=== PATIENT | female | born 1975 | race Caucasian/White ===

== ENCOUNTER → 2019-09-27 07:44 | Outpatient (BNVA) | payer MEDICAID, SELFPAY | PROVIDERS: Visit Provider Nurse Practitioner Psychiatric/Mental Health | DX: F31.73 Bipolar disorder, in partial remission, most recent episode manic (principal); F43.12 Post-traumatic stress disorder, chronic; F41.1 Generalized anxiety disorder; F17.210 Nicotine dependence, cigarettes, uncomplicated | CPT/HCPCS: 99213 ==

== ENCOUNTER 2019-12-06 15:25 | Outpatient (CLI) | payer OTHER, SELFPAY ==
--- NOTE | 2019-12-06 15:37 | MM_ITS ---
WS: [id number] BILATERAL DIGITAL SCREENING MAMMOGRAPHY WITH CAD CLINICAL INFORMATION: SCREENING HISTORY: Screening mammogram. No current complaints. COMPARISON: April 26, 2018 TECHNIQUE: Bilateral CC and MLO views. FINDINGS: The breasts are composed of heterogeneous fibroglandular density tissue, which can limit the detectio n of small underlying mass lesions. No suspicious mass, asymmetry, calcifications, or architectural d istortion. No evidence of malignancy. MM/[place] [id number] IMPRESSION: BI-RADS: 1-Negative FOLLOW UP: 1 Year Follow-up Recommend return to annual screening mammography.
== END 2019-12-06 15:26 | disposition home or self-care (01) ==
LOC: RADSHAW 15:34
PROVIDERS: Visit Provider Nurse Practitioner Family
DX: Z12.31 Encounter for screening mammogram for malignant neoplasm of breast (principal)
CPT/HCPCS: 77067

== ENCOUNTER → 2020-10-02 08:56 | Outpatient (BNVA) | payer MEDICAID, SELFPAY | PROVIDERS: Visit Provider Nurse Practitioner Psychiatric/Mental Health | DX: F31.73 Bipolar disorder, in partial remission, most recent episode manic (principal); F43.12 Post-traumatic stress disorder, chronic; F41.1 Generalized anxiety disorder; F17.210 Nicotine dependence, cigarettes, uncomplicated; F10.21 Alcohol dependence, in remission | CPT/HCPCS: 99214 ==

== ENCOUNTER → 2021-01-23 07:17 | Outpatient (BNVA) | payer MEDICAID, SELFPAY | PROVIDERS: Visit Provider Nurse Practitioner Psychiatric/Mental Health | DX: F31.73 Bipolar disorder, in partial remission, most recent episode manic (principal); F43.12 Post-traumatic stress disorder, chronic; F41.1 Generalized anxiety disorder; F17.210 Nicotine dependence, cigarettes, uncomplicated; F10.21 Alcohol dependence, in remission | CPT/HCPCS: 99214 ==

== ENCOUNTER → 2021-03-06 08:26 | Outpatient (BNVA) | payer MEDICAID, SELFPAY | PROVIDERS: Visit Provider Nurse Practitioner Psychiatric/Mental Health | DX: F31.73 Bipolar disorder, in partial remission, most recent episode manic (principal); F43.12 Post-traumatic stress disorder, chronic; F41.1 Generalized anxiety disorder; F17.210 Nicotine dependence, cigarettes, uncomplicated; F10.21 Alcohol dependence, in remission | CPT/HCPCS: 99214 ==

== ENCOUNTER → 2021-04-17 07:57 | Outpatient (BNVA) | payer MEDICAID, SELFPAY | PROVIDERS: Visit Provider Nurse Practitioner Psychiatric/Mental Health | DX: F31.73 Bipolar disorder, in partial remission, most recent episode manic (principal); F43.12 Post-traumatic stress disorder, chronic; F41.1 Generalized anxiety disorder; F17.210 Nicotine dependence, cigarettes, uncomplicated; F10.21 Alcohol dependence, in remission | CPT/HCPCS: 99214 ==

== ENCOUNTER 2021-05-01 15:51 | Outpatient (CLI) | payer MEDICAID, SELFPAY ==
--- NOTE | 2021-05-01 16:10 | MR_ITS ---
WS: [id number] MRI CERVICAL SPINE NONCONTRAST TECHNIQUE: Sagittal T1, T2 and STIR imaging. Axial T2, gradient, and fiesta imaging. CLINICAL INFORMATION: CERVICALGIA M54.2 COMPARISON: None. FINDINGS: Straightening of the normal cervical lordosis. Disc bulging with small central protrusions worse at C 5-C6 and C6-C7. C2-C3: Disc osteophyte complex with endplate ridging. Spinal canal and foramen are patent. Mild facet arthropathy. C3-C4: Disc osteophyte complex with endplate ridging. Mild facet arthropathy. Spinal canal and forame n are patent. C4-C5: Mild disc bulging and osteophytic ridging. Mild facet arthropathy. Spinal canal and foramen ar e patent. C5-C6: Disc osteophyte complex with endplate ridging. Right pericentral protrusion extending into the right proximal neural foramen. Mild central canal stenosis and slight indentation right ventral cerv ical cord. Severe right proximal foraminal stenosis. Mild left bony foraminal narrowing. Moderate to advanced left facet arthropathy with a small amount of periarticular edema. C6-C7: Disc osteophyte complex with endplate ridging. Indentation on cervical cord with moderate cent ral canal stenosis. Cord signal remains normal. Moderate bilateral bony foraminal narrowing right gre ater than left. Mild facet arthropathy. C7-T1: Mild disc osteophytic ridging. Spinal canal and foramen are patent. Visualized brain stem structures: Normal. Prevertebral soft tissues: Normal. Small right thyroid nodule measuring 6 mm. MR/MR cervical spin wo con* [id number] IMPRESSION: 1. Straightening of the normal cervical lordosis. Cord signal is normal. 2. Mild central canal stenosis C5-C6 and moderate central canal stenosis C6-7 with indentation on cervical cord worse at C6-C7. 3. Right pericentral protrusion C5-C6 extending into the proximal right neural foramen with severe right foraminal narrowing. Correlation for right C6 nerve root symptoms. 4. Moderate bilateral bony foraminal narrowing C6-7, right greater than left. 5. Small amount of periarticular edema left C5-6 articulating facets consisten t with synovitis/degenerative change. Advanced left facet arthropathy C5-C6.
== END 2021-05-01 15:52 | disposition home or self-care (01) ==
LOC: RADSHAW 15:55
PROVIDERS: PCP Physician Assistant; Visit Provider Physician Assistant
DX: M48.02 Spinal stenosis, cervical region (principal); M50.222 Other cervical disc displacement at C5-C6 level; R60.0 Localized edema
CPT/HCPCS: 72141

== ENCOUNTER 2021-05-14 16:42 | Outpatient (CLI) | payer MEDICAID, SELFPAY ==
--- NOTE | 2021-05-14 16:48 | MR_ITS ---
WS: [id number] MRI LUMBAR SPINE NONCONTRAST HISTORY: LUMBAR RADICULOPATHY COMPARISON: Radiographs 03/20/2021 TECHNIQUE: Sagittal and axial multisequence imaging is submitted. Very mild RIGHT curvature lumbar spine. Posterior alignment demonstrates mild straightening. No fractures or marrow edema. Mild disc desiccation at L4-5 without loss of height. Conus terminates normally at L1-2 disc level. L1-L2: Normal. L2-L3: Very mild annular disc bulging with mild ligamentum flavum and facet hypertrophy. Small amount of fluid in the LEFT facet joint. Thecal sac is small caliber without significant stenosis. There is very mild encroachment upon the ventral thecal sac. L3-L4: Mild annular disc bulging with mild to moderate ligamentum flavum hypertrophy and facet arthri tis, LEFT greater than RIGHT. There is disc encroachment upon the ventral thecal sac causing mild fla ttening of the ventral thecal sac and encroachment into the lateral recesses. Mild central and bilate ral subarticular recess and foraminal stenosis. There is slight contact on the traversing L4 nerve ro ots. L4-L5: Diffuse annular disc bulging with a central disc protrusion moderate ligamentum flavum and fac et joint hypertrophy. Disc and facet disease causing a moderate central and RIGHT foraminal stenosis. Bilateral moderate subarticular recess stenosis and mild LEFT foraminal stenosis. There is mild disp lacement and encroachment with narrowing on the traversing L5 nerve roots and mild disc contact on th e exiting RIGHT L4 nerve root. L5-S1: Broad-based central disc protrusion without contact on the S1 nerve roots. Mild facet hypertro phy. No significant stenosis. MR/MR lumbar spine wo con* [id number] IMPRESSION: 1. 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 2. Central disc protrusion with ligamentum flavum and facet joint arthritis at L4-5 and the congenitally small thecal sac are resulting in moderate central, bilateral subarticular recess and RIGHT foraminal stenosis. Mild LEFT foraminal stenosis. Most significant encroachment upon the traversing L5 nerve roots. 3. Mild central, bilateral subarticular and foraminal stenosis at L3-4. Very s light contact on the traversing L4 nerve roots.
== END 2021-05-14 16:43 | disposition home or self-care (01) ==
LOC: RADSHAW 16:47
PROVIDERS: PCP Physician Assistant; Visit Provider Physician Assistant
DX: M54.16 Radiculopathy, lumbar region (principal); M51.26 Other intervertebral disc displacement, lumbar region; M48.061 Spinal stenosis, lumbar region without neurogenic claudication
CPT/HCPCS: 72148

== ENCOUNTER → 2021-05-22 08:50 | Outpatient (BNVA) | payer MEDICAID, SELFPAY | PROVIDERS: Visit Provider Nurse Practitioner Psychiatric/Mental Health | DX: F31.73 Bipolar disorder, in partial remission, most recent episode manic (principal); F43.12 Post-traumatic stress disorder, chronic; F41.1 Generalized anxiety disorder; F17.210 Nicotine dependence, cigarettes, uncomplicated; F10.21 Alcohol dependence, in remission | CPT/HCPCS: 99214 ==

== ENCOUNTER → 2021-08-26 07:50 | Outpatient (BNVA) | payer MEDICAID, SELFPAY | PROVIDERS: Visit Provider Nurse Practitioner Psychiatric/Mental Health | DX: F41.1 Generalized anxiety disorder (principal); F43.12 Post-traumatic stress disorder, chronic; F31.62 Bipolar disorder, current episode mixed, moderate; F17.210 Nicotine dependence, cigarettes, uncomplicated; F10.21 Alcohol dependence, in remission; Z79.899 Other long term (current) drug therapy | CPT/HCPCS: 99214 ==

== ENCOUNTER → 2021-09-24 07:20 | Outpatient (BNVA) | payer MEDICAID, SELFPAY | PROVIDERS: Visit Provider Nurse Practitioner Psychiatric/Mental Health | DX: F31.62 Bipolar disorder, current episode mixed, moderate (principal); F43.12 Post-traumatic stress disorder, chronic; F41.1 Generalized anxiety disorder; F17.210 Nicotine dependence, cigarettes, uncomplicated; F10.21 Alcohol dependence, in remission | CPT/HCPCS: 99214 ==

== ENCOUNTER 2021-09-25 12:10 | Emergency (ER) | payer MEDICAID, SELFPAY ==
[2021-09-25 12:37] VITALS: BP 136/92; PULSE 102; RESP 16; TEMP 36.7; O2SAT 99; BMI 26.5
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
[2021-09-25] MEDS: ketorolac 60 mg/2 mL INJ IM (13:06)
[2021-09-25] MEDS: orphenadrine 30 mg/mL Inj 2 mL 60 MG IM (13:06)
== END 2021-09-25 14:00 | disposition home or self-care (01) ==
PROVIDERS: Emergency Provider Physician Assistant; PCP Physician Assistant
DX: S13.4XXA Sprain of ligaments of cervical spine, initial encounter (principal); M54.50 Low back pain, unspecified; V43.02XA Car driver injured in collision with other type car in nontraffic accident, initial encounter; F17.200 Nicotine dependence, unspecified, uncomplicated
CPT/HCPCS: 72100; 72125; 96372; 99283; J1885; J2360

== ENCOUNTER 2021-12-19 07:34 | Outpatient (CLI) | payer MEDICAID, SELFPAY ==
--- NOTE | 2021-12-19 07:41 | MM_ITS ---
WS: [id number] SCREENING DIGITAL BREAST TOMOSYNTHESIS MAMMOGRAM WITH CAD HISTORY: SCREENING COMPARISON: 12/06/2019 and 04/26/2018 Bilateral CC and MLO with tomosynthesis and synthetic mammography submitted. Computer aided detection analyzed. Breast composition: There are scattered areas of fibroglandular density. New 6 mm asymmetry in the me dial LEFT breast on the CC projection. This should be within the medial breast on the lateral project ion. No corresponding abnormality noted. There is enhancement additional 5 mm asymmetry in the LEFT M LO in the posterior inferior breast which probably corresponds to a more central lymph node. RIGHT br east is negative. MM/[place] [id number] IMPRESSION: BI-RADS: 0-Incomplete: Need additional imaging evaluation FOLLOW UP: Need Additional Imaging LEFT breast: Spot compression views (CC ). True ML. Ultrasound to follow if abn ormality persists. Additional imaging of the asymmetry in the medial LEFT breas t.
== END 2021-12-19 07:35 | disposition home or self-care (01) ==
LOC: RAD 07:35
PROVIDERS: PCP Physician Assistant; Visit Provider Physician Assistant
DX: Z12.31 Encounter for screening mammogram for malignant neoplasm of breast (principal)
CPT/HCPCS: 77063; 77067

== ENCOUNTER 2022-01-08 07:36 | Outpatient (CLI) | payer MEDICAID, SELFPAY ==
--- NOTE | 2022-01-08 07:40 | MM_ITS ---
WS: [id number] ADDITIONAL VIEWS LEFT MAMMOGRAM with tomosynthesis. LEFT BREAST ULTRASOUND HISTORY: ABNORMAL MAMMO COMPARISON: 12/19/2021, 12/06/2019 and 04/26/2018 LEFT MAMMOGRAM: Spot compression views and true ML with tomosynthesis and sympathetic mammography. There are 2 adjacent nodules each measuring about 4 mm in the medial breast. These appear to be just above the nipple line on the lateral projection. These were not present on prior studies. Ultrasound to follow. LEFT BREAST ULTRASOUND 2-D and color Doppler imaging submitted. There is a lobulated cystic mass in the LEFT breast at 10:00, 5 cm from the nipple measuring 6 x 6 x 4 mm. This does correspond in size and position to the mammographic abnormality. This is probably 2 s mall cysts together or a single lobulated cyst. MM/[id number] IMPRESSION: BI-RADS: 2-Benign FOLLOW UP: 1 Year Follow-up
== END 2022-01-08 07:37 | disposition home or self-care (01) ==
PROVIDERS: PCP Physician Assistant; Visit Provider Physician Assistant
DX: R92.8 Other abnormal and inconclusive findings on diagnostic imaging of breast (principal); N63.22 Unspecified lump in the left breast, upper inner quadrant
CPT/HCPCS: 76642; 77061

== ENCOUNTER 2022-01-30 11:53 | Emergency (ER) | payer MEDICAID, SELFPAY ==
[2022-01-30 12:12] VITALS: BP 126/85; PULSE 89; RESP 18; TEMP 36.8; O2SAT 97; BMI 29.2
--- NOTE | 2022-01-30 12:22 | XR_ITS ---
WS: [id number] XR chest 1V portable [id number] REASON FOR EXAM: sob FINDINGS: The heart and the mediastinum are within normal limits. Calcified granulomatous disease is seen in both hemithoraces. Compared to the previous examination of 03/20/2021 there is a linear lung opacity in the left lung bas e which most likely platelike atelectasis. The chest is otherwise unchanged compared to the previous examination. No significant abnormality of the bony thorax. XR/XR chest 1V portable [id number] IMPRESSION: Small area of linear atelectasis in the left lung base. Otherwise, no acute abn ormality.
[2022-01-30] MEDS: predniSONE 20 mg Tablet 60 MG PO (12:48)
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
[2022-01-30 13:15] LABS: Basophils # 0.1 10^3/uL (0.0-0.1); Basophils % 0.6 %; Eosinophils # 0.3 10^3/uL (0.0-0.8); Eosinophils % 2.7 %; Hematocrit 44.5 % (37.0-47.0); Hemoglobin 14.8 g/dL (11.5-15.3); Lymphocytes # 2.6 10^3/uL (0.8-4.8); Lymphocytes % 25.5 %; Mean Corpuscular HGB Conc 33.3 g/dL (30.0-36.0); Mean Corpuscular Hemoglobin 32.6 pg (28.0-34.0); Mean Platelet Volume 10.3 fL (7.4-10.4); Monocytes # 0.9 10^3/uL (0.2-0.9); Monocytes % 8.8 %; Neutrophils % 62.1 %; Nucleated Red Blood Cells % 0 %; Platelet Count 337 10^3/cmm (130-400); Red Blood Count 4.54 10^6/uL (4.1-5.3); Red Cell Distribution Width 12.9 % (12.1-15.1); White Blood Count 10.3 10^3/uL (4.0-10.0)
[2022-01-30 13:41] LABS: Anion Gap 13.9 (5-19); Blood Urea Nitrogen 8 mg/dL (6-20); Calcium 9.4 mg/dL (8.5-10.5); Carbon Dioxide 26 mmol/L (22-29); Chloride 103 mmol/L (98-107); Glomerular Filtration Rate 106.3 mL/min (90-130); Glucose 80 mg/dL (65-115); Osmolality Calculated 285 mOsm/kg (285-295); Potassium 3.9 mmol/L (3.5-5.1); Sodium 139 mmol/L (136-145)
[2022-01-30 13:44] LABS: ABG PCO2 35.2 mmHg (35-45); ABG PH Result 7.45 (7.35-7.45); Arterial Blood Gas Hematocrit 42.2 % (37-47); Base Excess ABG 0.6 mmol/L (-2.0-2.0); Blood Gas Operator Identificat GD; Blood Gas Sample Site Brachial, right; Blood Gas Sample Type Arterial; Carboxyhemoglobin 2.8 %THgb (0.4-20.1); HCO3 ABG 24.3 mmol/L (22-26); HGB O2 Sat 94.7 % (95-100); Methemoglobin 0.6 % (0.4-1.5); Oxygen Device ROOM AIR; PO2 ABG 81.7 mmHg (80.0-100.0); Total Hemoglobin 13.8 g/dL (12-16)
[2022-01-30 14:14] VITALS: BP 147/92; PULSE 88; RESP 16; O2SAT 98
== END 2022-01-30 14:16 | disposition home or self-care (01) ==
PROVIDERS: Emergency Medicine; Emergency Provider Emergency Medicine; PCP Physician Assistant
DX: R06.02 Shortness of breath (principal); F17.210 Nicotine dependence, cigarettes, uncomplicated
CPT/HCPCS: 36600; 71045; 80048; 82805; 85025; 99285; J7512

== ENCOUNTER → 2022-07-22 09:30 | Outpatient (BNVA) | payer MEDICAID, SELFPAY | PROVIDERS: PCP Physician Assistant; Visit Provider Podiatrist Foot & Ankle Surgery | DX: B35.1 Tinea unguium (principal); L84 Corns and callosities | CPT/HCPCS: 11055; 73630; 99204 ==

== ENCOUNTER 2022-07-27 12:02 | Emergency (ER) | payer MEDICAID, SELFPAY ==
[2022-07-27] VITALS (12 sets, daily range): BP systolic 134–141; BP diastolic 94–99; PULSE 99–120; RESP 14–18; TEMP 36.6; O2SAT 96–99; BMI 28.3
--- NOTE | 2022-07-27 12:12 | ECG_ITS ---
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 Measurements Intervals [place] Rate: 119 P: 67 PA: 129 QRS: 74 QRSD: 85 T: 59 QT: 316 QTc: 445 Interpretive Statements SINUS TACHYCARDIA MINIMAL ST DEPRESSION [0.025+ mV ST DEPRESSION] ABNORMAL RHYTHM ECG No previous ECG available for comparison Electronically Signed On 07-27-2022 20:37:20 PARAFFIN MACHINE OPERATOR by Jacque Bullock M.D. [email or web address] [email or web address]/[id number]
--- NOTE | 2022-07-27 12:14 | XRR_ITS ---
PROCEDURE INFORMATION: Exam: XR Chest Exam date and time: 07/27/2022 1:01 PM Age: 47 years old Clinical indication: Pain; Angina pectoris; Additional info: Chest pain TECHNIQUE: Imaging protocol: Radiologic exam of the chest. Views: 1 view. COMPARISON: CR XR chest 1V portable [id number] 01/30/2022 12:43 PM FINDINGS: Lungs: Unremarkable. No consolidation. Pleural spaces: Unremarkable. No pleural effusion. No pneumothorax. Heart/Mediastinum: Unremarkable. No cardiomegaly. Bones/joints: Stable bony abnormality right 8th rib likely developmental or posttraumatic in nature. No acute findings detected. XR/XR chest 1V portable [id number] IMPRESSION: Negative chest
[2022-07-27] MEDS: aspirin 81 mg Chew Tablet 324 MG PO (12:48)
[2022-07-27 13:05] LABS: Basophils # 0.1 10^3/uL (0.0-0.1); Basophils % 0.4 %; Eosinophils # 0.2 10^3/uL (0.0-0.8); Eosinophils % 1.7 %; Hematocrit 44.1 % (37.0-47.0); Lymphocytes # 3.4 10^3/uL (0.8-4.8); Lymphocytes % 29.9 %; Mean Corpuscular Hemoglobin 33.6 pg (28.0-34.0); Mean Corpuscular Volume 98.9 fl (81-99); Mean Platelet Volume 10.5 fL (7.4-10.4); Monocytes # 0.7 10^3/uL (0.2-0.9); Monocytes % 6.2 %; Neutrophils # 7.06 10^3/uL (1.8-7.7); Neutrophils % 61.4 %; Nucleated Red Blood Cells % 0 %; Platelet Count 288 10^3/cmm (130-400); Red Blood Count 4.46 10^6/uL (4.1-5.3); Red Cell Distribution Width 13.2 % (12.1-15.1); White Blood Count 11.5 10^3/uL (4.0-10.0)
[2022-07-27 13:14] LABS: Troponin(5th) Baseline 6 ng/L (0-10)
[2022-07-27 13:16] LABS: Alanine Aminotransferase 44 U/L (0-33); Alkaline Phosphatase 146 U/L (35-105); Anion Gap 14.8 (5-19); Aspartate Amino Transferase 37 U/L (0-32); Blood Urea Nitrogen 8 mg/dL (6-20); Calcium 8.9 mg/dL (8.5-10.5); Carbon Dioxide 24 mmol/L (22-29); Chloride 100 mmol/L (98-107); Globulin 2.6 g/dL (1.3-4.6); Glomerular Filtration Rate 88.9 mL/min (90-130); Glucose 101 mg/dL (65-115); Osmolality Calculated 278 mOsm/kg (285-295); Potassium 3.8 mmol/L (3.5-5.1); Sodium 135 mmol/L (136-145); Total Bilirubin 0.2 mg/dL (0.15-1.2); Total Protein 6.6 g/dL (6.6-8.7)
--- NOTE | 2022-07-27 14:14 | PC.NURSE ---
patient placed on manager cardiac cath, BP and continuos pulse ox at this time.
[2022-07-27 14:37] LABS: Troponin 5 2HR Delta 0 ABS# (0-10)
--- NOTE | 2022-07-27 14:37 | ECG_ITS ---
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 Measurements Intervals [place] Rate: 98 P: 62 ND: 136 QRS: 63 QRSD: 80 T: 62 QT: 349 QTc: 447 Interpretive Statements SINUS RHYTHM Compared to ECG 07/27/2022 12:12:30 Sinus tachycardia no longer present ST (T wave) deviation no longer present Electronically Signed On 07-27-2022 22:07:20 STORAGE WHARFAGE CLERK by Jacque Bullock M.D. [email or web address] [email or web address]/store/[id number]
--- NOTE | 2022-07-27 16:08 | W.ED.CHESTPA ---
HPI - Chest Pain General: Chief Complaint: Chest Pain Stated Complaint: left side CP Time Seen by Provider: 07/27/22 12:13 Source: patient Mode of arrival: ambulatory History of Present Illness: 47-year-old female presents emergency room with complaints of chest pain and shortness of breath began this morning's been going on for several hours. Radiates into her left arm she describes it as being 8 of 10. It is resolved completely by the time I seen the patient. She gets short of breath with exertion. She has no known coronary artery disease she does smoke is a history of COPD. No nausea vomiting diarrhea no recent flulike symptoms productive cough or fever. MD complaint: chest pain Onset (ago): hour(s) Timing of current episode: episodic Onset: during rest Pain location: left chest Pain radiation: left arm Severity: moderate Quality: sharp Relieving factors: nothing Exacerbating factors: nothing Associated symptoms: Deny abdominal pain, diaphoresis, dyspnea, fever(s), leg edema, nausea, palpitations, sense of impending doom, syncope or vomiting Treatment prior to arrival: none Review of Systems Const: Denies: fever(s), chills, fatigue, malaise or diaphoresis ENMT: Denies: throat pain, ear or mastoid pain, nasal discharge or nasal congestion Card: Reports: chest pain; Denies: palpitations, irregular heart rhythm, edema or syncope Resp: Denies: dyspnea, productive cough, non-productive cough or wheezing GI: Denies: abdominal pain, nausea or vomiting : Denies: flank pain, difficulty voiding, dysuria, urinary frequency or urinary urgency Skin/Breast: Denies: rash or pruritus PFSH ED PFSH: Medical History Bipolar disorder, current episode mixed, moderate Chronic post-traumatic stress disorder Generalized anxiety disorder Nicotine dependence, cigarettes, uncomplicated No pertinent family history Psychiatric care Social History Smoking and tobacco status: current every day smoker Female Reproductive History: Date of last menstrual period: 01/19/22 Physical Exam Const: COMMON NORMALS: no acute distress GENERAL APPEARANCE: cooperative and comfortable ORIENTATION/CONSCIOUSNESS: Yes awake, Yes oriented to person, Yes oriented to place and Yes oriented to time HENMT: COMMON NORMALS: normocephalic, atraumatic and hearing grossly normal bilaterally HEAD & SCALP: normocephalic and atraumatic Chest: OTHER: Pain is reproducible to palpation on the left upper chest adjacent to the sternum Resp: COMMON NORMALS: normal respiratory effort, No retractions, No use of accessory muscles and clear to auscultation bilaterally AUSCULTATION: clear to auscultation bilaterally Cardio: COMMON NORMALS: regular rate, regular rhythm and No murmurs present (Cardio) RATE: regular rate RHYTHM: regular rhythm GI: COMMON NORMALS: Soft to palpation and No hepatosplenomegaly present AUSCULTATION: Yes normoactive bowel sounds PALPATION: Yes Soft to palpation, No Tenderness to palpation present (GI), No Guarding due to palpation present (GI) and Yes No hepatosplenomegaly present Extremity: COMMON NORMALS: normal to inspection, capillary refill normal, no clubbing, cyanosis or edema, no calf tenderness and no pedal edema Neuro: SENSORIUM/ORIENTATION: Yes oriented to person, Yes oriented to place and Yes oriented to time Skin: COMMON NORMALS: no rashes or lesions noted GENERAL SKIN EXAM: no rashes or lesions noted Course Vital Signs: Vital signs: Vital Signs Temperature 97.9 F 07/27/22 12:14 Pulse Rate 99 07/27/22 14:35 Respiratory Rate 16 07/27/22 14:35 Blood Pressure 141/99 07/27/22 14:50 Pulse Oximetry 98 07/27/22 14:35 Oxygen Delivery Me thod 07/27/22 12:14 MDM - Chest Pain Medical Decision Making Labs imaging and EKG reviewed no acute ST changes on EKG cardiac enzymes negative discharge patient home Lab Data 07/27/22 12:29 07/27/22 12:29 Radiology Impressions Chest X-Ray 07/27/22 12:14 IMPRESSION: Negative chest Laboratory Results WBC 11.5 10^3/uL (4.0-10.0) H 07/27/22 12:29 RBC 4.46 10^6/uL (4.1-5.3) 07/27/22 12:29 Hgb 15.0 g/dL (11.5-15.3) 07/27/22 12:29 Hct 44.1 % (37.0-47.0) 07/27/22 12:29 MCV 98.9 fl (81-99) 07/27/22 12: MCH 33.6 pg (28.0-34.0) 07/27/22 12: MCHC 34.0 g/dL (30.0-36.0) 07/27/22 12: RDW 13.2 % (12.1-15.1) 07/27/22 12: Plt Count 288 10^3/cmm (130-400) 07/27/22 12: MPV 10.5 fL (7.4-10.4) H 07/27/22 12:29 Neut % (Auto) 61.4 % 07/27/22 12: Lymph % (Auto) 29.9 % 07/27/22 12: [place] % (Auto) 6.2 % 07/27/22 12: Eos % (Auto) 1.7 % 07/27/22 12: Baso % (Auto) 0.4 % 07/27/22 12: Neut # (Auto) 7.06 10^3/uL (1.8-7.7) 07/27/22 12:29 Lymph # (Auto) 3.4 10^3/uL (0.8-4.8) 07/27/22 12: [place] # (Auto) 0.7 10^3/uL (0.2-0.9) 07/27/22 12:29 Eos # (Auto) 0.2 10^3/uL (0.0-0.8) 07/27/22 12: Baso # (Auto) 0.1 10^3/uL (0.0-0.1) 07/27/22 12:29 Nucleated RBC % (auto) 0 % 07/27/22 12: Nucleated RBCs # 0.0 /100WBC 07/27/22 12: Sodium 135 mmol/L (136-145) L 07/27/22 12:29 Potassium 3.8 mmol/L (3.5-5.1) 07/27/22 12: Chloride 100 mmol/L (98-107) 07/27/22 12: Carbon Dioxide 24 mmol/L (22-29) 07/27/22 12: Anion Gap 14.8 (5-19) 07/27/22 12:29 BUN 8 mg/dL (6-20) 07/27/22 12:29 Creatinine 0.7 mg/dL (0.5-0.9) 07/27/22 12:29 GFR Calculation 88.9 mL/min (90-130) L 07/27/22 12:29 Glucose 101 mg/dL (65-115) 07/27/22 12:29 Calculated Osmolality 278 mOsm/kg (285-295) L 07/27/22 12:29 Calcium 8.9 mg/dL (8.5-10.5) 07/27/22 12:29 Total Bilirubin 0.2 mg/dL (0.15-1.2) 07/27/22 12:29 AST 37 U/L (0-32) H 07/27/22 12:29 ALT 44 U/L (0-33) H 07/27/22 12:29 Alkaline Phosphatase 146 U/L (35-105) H 07/27/22 12:29 Troponin T Baseline 6 ng/L (0-10) 07/27/22 12:29 Troponin T 120 Minute 6.00 ng/L (0-10) 07/27/22 14:07 Delta Troponin T 0 ABS# (0-10) 07/27/22 14:07 Total Protein 6.6 g/dL (6.6-8.7) 07/27/22 12:29 Albumin 4.0 g/dL (3.5-5.2) 07/27/22 12:29 Globulin 2.6 g/dL (1.3-4.6) 07/27/22 12:29 Discharge Plan Discharge Patient Disposition: Home Clinical Impression: Atypical chest pain Condition: Stable Prescriptions: No Action budesonide-formoterol [Symbicort] 80-4.5 mcg/actuation HFA aerosol inhaler 2 puff inhalation BID omeprazole 20 mg capsule,delayed release(DR/EC) 20 mg PO DAILY hydroxyzine HCl 50 mg tablet 50 mg PO BID PRN (Reason: anxiety) Qty: 60 6RF albuterol sulfate 90 mcg/actuation HFA aerosol inhaler 2 puff inhalation Q6H PRN (Reason: Shortness Of Breath) metoprolol succinate 25 mg tablet extended release 24 hr 25 mg PO DAILY melatonin 10 mg tablet extended release 10 mg PO DIRECTED Qty: 30 1RF hydrocodone-acetaminophen 10-325 mg tablet 1 tab PO QID gabapentin 600 mg tablet 600 mg PO TID Qty: 270 2RF Abilify 20 mg tablet 20 mg PO QAM Abilify 5 mg tablet 5 mg PO QAM naproxen 375 mg tablet 375 mg PO DAILY PRN (Reason: Pain) terbinafine HCl 250 mg tablet 250 mg PO DAILY acetaminophen 325 mg Tablet 650 mg PO QID PRN (Reason: Pain) Discharge Orders: Discharge ED (Routine); Ordered 07/27/22 Ordered By: Raza Jiménez Referrals: Alexus Reese PA [Primary Care Provider] - Discharge Diet: Usual diet Discharge Activity: Resume usual activity Patient Instructions: Opioid Safety, Pain Management Activity Restrictions/Additional Instructions: You were seen for chest pain. Your EKG and cardiac enzymes were normal. manager audio will make arrangements for you to have an outpatient Lexiscan sestamibi stress test. Stand Alone Forms: Work/School Release Coding Level of Care Code ED Ribbon Weaver for Blade Yang
--- NOTE | 2022-07-28 14:12 | DCPLANNER ---
Addendum entered by Bettie Saravia 09/02/22 10:48: field operations farm manager received the following message from centralized scheduling: Good morning. I just received notification from Medicaid that they are not approving Stress test for patient. They said this order can be changed to CTA or withdrawn due to rapid results available for CTA and easily identifiable. Order is for Stress Test CPT [address] Jiménez. Please advise. Thanks, Ivy More field operations farm manager called patient and informed patient that patient would need to follow up her primary care physician. If the primary care physician feels that patient needs the stress test, then her pcp can order the stress test. Patient stated that she would schedule an appointment with Alexus Reese at [facility], her primary care. Original Note: field operations farm manager had message to schedule an outpatient stress test for patient. field operations farm manager faxed signed order to centralized scheduling, who will call patient with appointment information. field operations farm manager sent notification to patients primary care physician about the ER physician ordering the tests out of the ER.
== END 2022-07-27 14:56 | disposition home or self-care (01) ==
PROVIDERS: Emergency Provider Family Medicine; PCP Physician Assistant
DX: R07.89 Other chest pain (principal); F17.210 Nicotine dependence, cigarettes, uncomplicated
CPT/HCPCS: 36415; 71045; 80053; 84484; 85025; 93005; 99285

== ENCOUNTER → 2022-08-19 09:20 | Outpatient (BNVA) | payer MEDICAID, SELFPAY | PROVIDERS: PCP Physician Assistant; Visit Provider Podiatrist Foot & Ankle Surgery | DX: L84 Corns and callosities (principal); B35.1 Tinea unguium | CPT/HCPCS: 99213 ==

== ENCOUNTER → 2022-09-08 09:09 | Outpatient (BNVA) | payer OTHER, SELFPAY | PROVIDERS: PCP Physician Assistant; Visit Provider Nurse Practitioner Psychiatric/Mental Health | DX: F31.62 Bipolar disorder, current episode mixed, moderate (principal); Z79.899 Other long term (current) drug therapy | CPT/HCPCS: 80061; 83036 ==

== ENCOUNTER → 2022-09-30 09:51 | Outpatient (BNVA) | payer MEDICAID, SELFPAY ==
[2022-09-11 11:23] VITALS: BP 151/101; BMI 29.1
== END ==
PROVIDERS: PCP Physician Assistant; Visit Provider Podiatrist Foot & Ankle Surgery
DX: L84 Corns and callosities (principal); B35.1 Tinea unguium
CPT/HCPCS: 99213

== ENCOUNTER → 2022-10-30 08:49 | Outpatient (BNVA) | payer MEDICAID, SELFPAY ==
[2022-09-11 11:23] VITALS: BP 151/101; BMI 29.1
== END ==
PROVIDERS: PCP Physician Assistant; Visit Provider Podiatrist Foot & Ankle Surgery
DX: L84 Corns and callosities (principal); B35.1 Tinea unguium
CPT/HCPCS: 99213

== ENCOUNTER 2022-11-05 05:42 | Day surgery (SDC) | payer MEDICAID, SELFPAY ==
[2022-09-11 11:23] VITALS: BP 151/101; BMI 29.1
[2022-11-04 09:27] VITALS: BMI 28.3
[2022-11-05] VITALS (7 sets, daily range): BP systolic 107–165; BP diastolic 77–101; PULSE 85–92; RESP 16–18; TEMP 36.3–36.6; O2SAT 94–96
[2022-11-05] MEDS: acetaminophen 1,000 MG/100 ML PIGGYBACK 400 MG IV (06:21)
[2022-11-05] MEDS: sodium chloride 0.9% 1,000 ML 30 ML IV (06:23)
--- NOTE | 2022-11-05 06:36 | W.PM.OPSUD ---
Surgery/Procedure H&P Update DATE OF PROCEDURE: November 05, 2022 DATE H&P PERFORMED: 10/30/22 CHANGES TO PREVIOUS DOCUMENTATION: No changes PLANNED PROCEDURE: Operation Date: 11/05/22 07:00 Proposed Procedures p ?Right foot fifth digit derotational arthroplasty 86979,M20.41(Right) - Yassine Elias DPM
--- NOTE | 2022-11-05 06:38 | ANES.PREANE2 ---
Pre-Anesthetic Assessment Height/Weight: Height 1.6 m Weight 72.575 kg Temp Pulse Resp BP Pulse Ox O2 Del Method 97.8 F 92 18 165/101 96 Room Air 11/05/22 06:08 11/05/22 06:08 11/05/22 06:08 11/05/22 06:08 11/05/22 06:08 11/05/22 06:09 Operation Date: 11/05/22 07:00 Proposed Procedures p ?Right foot fifth digit derotational arthroplasty 70645,M20.41(Right) - Yassine Elias DPM Familial anesthetic complications: None Was Beta Sharyn taken within 24 hours: Yes Was Clonidine taken within 24 hours: N/A Last intake: Intake Last Liquid Date 11/04/22 Last Liquid Time 23:00 Last Solid Date 11/04/22 Last Solid Time 17:00 Social Alcohol (2-3 shots a night) and Tobacco Exam alert, oriented x 3, clear to auscultation bilaterally and regular rate & rhythm Airway Mallampati: Class II Dentition: false Pulmonary Asthma (mild) CV/HEM Hypertension atypical chest pain incident in july (normal enzymes and ekg) described as sharp pain. Patient states she's had no repeat episodes of chest pain and is able to achieve 4 METS without symptoms. 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 ER physician at visit had recommended follow up stress test, but this was not approved by insurance Hepatic hx Hep C GI Gastroesophageal Reflux Disease Anesthetic Plan ASA status: 3 Anesthesia: MAC Risk of > 500 ml blood loss (7ml/kg in children): No Medications/Allergies Home Medications Medication Instructions Recorded Confirmed Last Taken Type budesonide-formoterol HFA 80 2 puff inhalation BID 10/01/20 11/05/22 11/05/22 05:30 History mcg-4.5 mcg/actuation aerosol inhaler (Symbicort) omeprazole 20 mg capsule,delayed 20 mg PO DAILY 03/05/21 11/05/22 11/05/22 05:30 History release albuterol sulfate 90 mcg/actuation 2 puff inhalation Q6H PRN 03/23/22 11/04/22 Unknown History aerosol inhaler Shortness Of Breath melatonin 10 mg tablet,extended 10 mg PO DIRECTED #30 tabs 03/23/22 11/05/22 11/04/22 23:30 Rx release metoprolol succinate 25 mg 25 mg PO DAILY 03/23/22 11/05/22 11/05/22 05:30 History tablet,extended release 24 hr hydrocodone 10 mg-acetaminophen 1 tab PO QID pain 07/10/22 11/05/22 11/05/22 05:30 History 325 mg tablet acetaminophen 325 mg tablet 650 mg PO QID PRN Pain 07/27/22 11/04/22 11/04/22 History aripiprazole 20 mg tablet (Abilify) 20 mg PO QAM 07/27/22 11/04/22 11/04/22 History aripiprazole 5 mg tablet (Abilify) 5 mg PO QAM 07/27/22 11/04/22 11/04/22 History naproxen 375 mg tablet 375 mg PO DAILY PRN Pain 07/27/22 11/04/22 11/03/22 History gabapentin 600 mg tablet 600 mg PO TID #270 tabs 10/09/22 11/05/22 11/05/22 05:30 Rx hydroxyzine HCl 50 mg tablet 50 mg PO BID PRN anxiety #60 tabs 10/09/22 11/05/22 11/05/22 05:30 Rx cyclobenzaprine 10 mg tablet 10 mg PO QID PRN Spasms 11/05/22 11/05/22 Unknown History tramadol 50 mg tablet 50 mg PO Q6H PRN pain #16 tabs 11/05/22 Unknown Rx Allergies Allergy/AdvReac Type Severity Reaction Status Date / Time No Known Allergies Allergy Verified 11/05/22 06:15 Current Medications Generic Name Dose Route Start Last Admin Trade Name Freq PRN Reason Stop Dose Admin Sodium Chloride 1,000 mls @ 30 mls/hr 11/05/22 06:00 11/05/22 06:23 Sodium Chloride 0.9% IV 11/06/22 05:59 30 mls/hr .Q24H GRZEGORZ Administration PFSH Anesthesia Medical History Bipolar disorder, current episode mixed, moderate Chronic post-traumatic stress disorder Generalized anxiety disorder Nicotine dependence, cigarettes, uncomplicated No pertinent family history Psychiatric care Family History Mother CAD (coronary artery disease) Hypertension Back pain Father Cancer prostate Sister Cancer cervical Social History Smoking and tobacco status: current every day smoker cigarettes Years cigarettes smoked: 30 Quit status (tobacco): considering quitting Second hand smoke exposure: No Smoking risk assessment/counseling performed?: Yes Tobacco counseling given: support program Other tobacco screening/counseling details: discussed for 10 min. 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
[2022-11-05] MEDS: ceFAZolin 2,000 MG in sodium chloride 0.9% (plus) 50 ML 100 MG IV (07:01)
--- NOTE | 2022-11-05 07:29 | PC.NURSE ---
Pt arrived to PACU, awake, A&Ox3, pt denies any pain or nausea at this time. Dressing to right foot C/D/I, right toes p/w/d, cap refill <3 seconds, able to wiggle toes. FOB elevated.
[2022-11-05] MEDS: TRAMadol 50 mg Tablet PO (08:11)
--- NOTE | 2022-11-05 08:40 | P.OP_ITS ---
Operative Report Date of procedure: November 05, 2022 Pre-op diagnosis: Right foot fifth digit hammertoe Post-op diagnosis: Same Post-op findings: Right foot fifth digit hammertoe Procedure done: Right foot fifth digit derotational arthroplasty CPT 83931 Implants: None Surgeon: Jose Alfredo Mandel.P.MLillian Estimated blood loss: Less than 10 cc 11 min Complications: none Findings: see above Brief History: Patient is a 47-year-old female that has a history of right foot 5th digit hammertoe. The patient has had the aforementioned chief complaint for some time. Conservative treatment measures have been attempted and the patient has opted for surgical intervention at this time. A lengthy discussion regarding the procedure, including risks and complications has been had with the patient and is noted in the recent clinic note. Written and verbal consent have been obtained. All patient questions have been answered to the patient?s satisfaction. No written or verbal guarantees have been given or implied. The patient has been NPO since midnight. The history has been reviewed and the history and physical is current. The signed consent was confirmed and placed in the patient chart. Patient imaging has been reviewed and is consistent with the diagnosis. Under mild sedation, the patient was brought into the operating room and placed on the table in the supine position. IV antibiotics were given by the anesthesia team as preoperative surgical prophylaxis. IV sedation was then performed by the anesthesiateam. A pneumatic tourniquet was then placed about the right ankle. A local field block was then performed usinng 0.5% marcaine plain. The operative extremity was then prepped and draped in the usual fashion. The extremity was then elevated and exsanguinated before the tourniquet was inflated to 250mmHg. After inflation, the following procedure was then performed. Attention was directed to the fifth digit of the right foot. An elliptical incision was made over the proximal interphalangeal joint using a #15 blade. The ellipse was excised and passed from the operative field. Dissection was carried down through subcutaneous and superficial fascia to the extensor tendon. The extensor tendon was transected at the level of the proximal phalanx head. The extensor tendon was retracted proximally and the head and distal shaft of the proximal phalanx was exposed. A sagittal bone saw was used to remove the articular condyles and head of the proximal phalanx. This was passed from the operative field. The site was then irrigated with copious muscle sterile saline before attention was directed to closure. Extensor tendon was repaired using 4- 0 Vicryl followed by skin closed with 4-0 nylon in simple interrupted fashion. The tourniquet was let down and good hyperemic response was noted to all digits of the right foot. The incision was dressed with Xeroform, 4 x 4 gauze, Kerlix, Surinder before being placed in a postoperative shoe. The patient tolerated the procedure and anesthesia well and without complication. The patient was transported from the operating room to the recovery room with vital signs stable and vascular status intact to all digits of the right foot. The patient was given both written and verbal instructions to remain weight bearing as tolerated in post op shoe to the operative extremity, to keep dressings/splint clean, dry and intact and to take pain medication as directed. The patient will follow-up in the outpatient setting at their scheduled appointment. The patient was discharged with my personal number and was instructed to call if any questions or issues should arise. They were discharged home once anesthesia criteria was met.
--- NOTE | 2022-11-05 17:26 | ANE.PACU2 ---
Inpatient post-anesthesia follow up: Airway intact: Yes Vital signs: Temperature 97.4 F Pulse Rate 85 Respiratory Rate 18 Blood Pressure 141/80 Pulse Oximetry 94 Oxygen Delivery Me thod Room Air Oxygen Flow Rate Fraction of Inspir ed Oxygen Hydration adequate: Yes Nausea and vomiting: No Pain level: 1 Mental status: Baseline
== END 2022-11-05 08:18 | disposition home or self-care (01) ==
PROVIDERS: PCP Physician Assistant; Visit Provider Podiatrist Foot & Ankle Surgery
PROC: (CPT 28285; principal; 2022-11-05 07:00)
DX: M20.41 Other hammer toe(s) (acquired), right foot (principal); I10 Essential (primary) hypertension; K21.9 Gastro-esophageal reflux disease without esophagitis; Z79.891 Long term (current) use of opiate analgesic; F41.1 Generalized anxiety disorder; F17.210 Nicotine dependence, cigarettes, uncomplicated
CPT/HCPCS: 28285; J0131; J0690; J2250; J2704; J3010; J3490; J7030

== ENCOUNTER → 2022-11-19 12:54 | Outpatient (BNVA) | payer MEDICAID, SELFPAY ==
[2022-09-11 11:23] VITALS: BP 151/101; BMI 29.1
== END ==
PROVIDERS: PCP Physician Assistant; Visit Provider Podiatrist Foot & Ankle Surgery
DX: Z98.890 Other specified postprocedural states (principal)
CPT/HCPCS: 99024

== ENCOUNTER → 2022-12-01 12:59 | Outpatient (BNVA) | payer OTHER, SELFPAY ==
[2022-09-11 11:23] VITALS: BP 151/101; BMI 29.1
== END ==
PROVIDERS: PCP Physician Assistant; Visit Provider Podiatrist Foot & Ankle Surgery
DX: Z98.890 Other specified postprocedural states (principal)
CPT/HCPCS: 99024

== ENCOUNTER 2023-02-10 10:06 | Emergency (ER) | payer MEDICAID, SELFPAY ==
[2022-09-11 11:23] VITALS: BP 151/101; BMI 29.1
[2023-02-10 10:09] VITALS: BP 152/66; PULSE 106; TEMP 37.3; O2SAT 98; BMI 28.3
--- NOTE | 2023-02-10 10:38 | ED.C_ITS ---
HPI - Psych General: Chief Complaint: Psychiatric Symptoms Stated Complaint: SI Time Seen by Provider: 02/10/23 10:16 Source: patient Mode of arrival: ambulatory History of Present Illness: 48-year-old female presents emergency room via EMS. She had made suicidal expression while talking to the department of children services from [place] they were regarding her weight as she became upset she felt they were taking too much money and she would not be able to live and made a comment about killing herself. Department and children services from [place] called local police they went to her home made contact with her and were able to convince her to go with EMS to come to the hospital. She is now denying any suicidal ideation or plan she admits to having made a statement out of frustration but states she would never actually hurt herself. She is seen at [facility] and is on Abilify. She has not recently changed dose or missing doses she is not previously been admitted for suicidal ideation she does have a history of methamphetamine abuse but has been clean for a couple of years now per her report. complaint: suicidal ideation Review of Systems Const: Denies: fever(s), chills, body aches, change in appetite, fatigue or malaise ENMT: Denies: throat pain, ear or mastoid pain, nasal discharge or nasal congestion Card: Denies: chest pain, edema, dyspnea on exertion or orthopnea Resp: Denies: dyspnea, productive cough or non-productive cough GI: Denies: abdominal pain, nausea, vomiting, hematemesis, coffee ground emesis, diarrhea, constipation, bloating, hematochezia or melena : Denies: flank pain, difficulty voiding, dysuria, urinary frequency or urinary urgency Skin/Breast: Denies: rash or pruritus PFSH ED PFSH: Medical History Bipolar disorder, current episode mixed, moderate Chronic post-traumatic stress disorder Generalized anxiety disorder Nicotine dependence, cigarettes, uncomplicated No pertinent family history Psychiatric care Family History Mother CAD (coronary artery disease) Hypertension Back pain Father Cancer prostate Sister Cancer cervical Social History Smoking and tobacco status: current every day smoker cigarettes Years cigare ttes smoked: 30 Quit status (tobacco): considering quitting Second hand smoke exposure: No Smoking risk assessment/counseling performed?: Yes Tobacco counseling given: support program Other tobacco screening/counseling details: discussed for 10 min. 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 Current occupational exposures/hazards: Yes Pets and animals: Yes Pets & animals: cat(s) and dog(s) Leisure activites: other Leisure activities details: watch tv Sexually active: No Do you think of yourself as: Straight/Heterosexual Current gender identity: Female Batsheva/Sabianist: Jew Special batsheva needs: No Agree to transfusion: Yes Financial difficulty paying for basics: Somewhat Hard Female Reproductive History: Spontaneous abortions: No Physical Exam Const: GENERAL APPEARANCE: cooperative and comfortable ORIENTATION/CONSCIOUSNESS: Yes awake, Yes oriented to person, Yes oriented to place and Yes oriented to time HENMT: COMMON NORMALS: normocephalic, atraumatic and hearing grossly normal bilaterally HEAD & SCALP: normocephalic and atraumatic Resp: COMMON NORMALS: normal respiratory effort, No retractions, No use of accessory muscles and clear to auscultation bilaterally AUSCULTATION: clear to auscultation bilaterally Cardio: COMMON NORMALS: regular rate, regular rhythm and No murmurs present (Cardio) RATE: regular rate RHYTHM: regular rhythm GI: COMMON NORMALS: Soft to palpation and No hepatosplenomegaly present AUSCULTATION: Yes normoactive bowel sounds PALPATION: Yes Soft to palpation, No Tenderness to palpation present (GI), No Guarding due to palpation present (GI) and Yes No hepatosplenomegaly present Extremity: COMMON NORMALS: normal to inspection, capillary refill normal, no clubbing, cyanosis or edema, no calf tenderness and no pedal edema Neuro: SENSORIUM/ORIENTATION: Yes oriented to person, Yes oriented to place and Yes oriented to time Skin: COMMON NORMALS: no rashes or lesions noted GENERAL SKIN EXAM: no rashes or lesions noted Course Vital Signs: Vital signs: Vital Signs Temperature 99.1 F 02/10/23 10:09 Pulse Rate 106 H 02/10/23 10:09 Blood Pressure 152/66 02/10/23 10:09 Pulse Oximetry 98 02/10/23 10:09 Oxygen Delivery Me thod Room Air 02/10/23 10:09 MDM - Psych Medical Decision Making Discussed with psychiatry. Psychiatry seen the patient as well they do not feel that she is a high risk for self-harm. He thinks this is just an excited utterance. She is angry and frustrated with her circumstance that she reiterates repeatedly she was just angry and she does not intend to harm herself we will go and discharge her home follow-up with [facility] she has been established there in the past return if she has further problems. Medical Records I reviewed the patient's medical records. Lab Data I reviewed the patient's lab results. 02/10/23 10:34 02/10/23 10:34 Laboratory Results WBC 10.85 10^3/uL (3.29-11.43) 02/10/23 10:34 RBC 4.28 10^6/uL (3.85-5.65) 02/10/23 10:34 Hgb 14.80 g/dL (11.27-16.99) 02/10/23 10:34 Hct 43.6 % (36-47) 02/10/23 10:34 MCV 101.9 fl (85-98) H 02/10/23 10:34 MCH 34.6 pg (27-33) H 02/10/23 10:34 MCHC 33.9 g/dL (30-55) 02/10/23 10:34 RDW 12.4 % (12.1-15.1) 02/10/23 10:34 Plt Count 294 10^3/cmm (157-399) 02/10/23 10:34 MPV 10.6 fL (7.4-10.4) H 02/10/23 10:34 Neut % (Auto) 51.8 % 02/10/23 10:34 Lymph % (Auto) 36.6 % 02/10/23 10:34 Fajardo % (Auto) 7.2 % 02/10/23 10:34 Eos % (Auto) 3.1 % 02/10/23 10:34 Baso % (Auto) 0.7 % 02/10/23 10:34 Neut # (Auto) 5.62 10^3/uL (1.8-7.7) 02/10/23 10:34 Lymph # (Auto) 4.0 10^3/uL (0.8-4.8) 02/10/23 10:34 Fajardo # (Auto) 0.8 10^3/uL (0.2-0.9) 02/10/23 10:34 Eos # (Auto) 0.3 10^3/uL (0.0-0.8) 02/10/23 10:34 Baso # (Auto) 0.1 10^3/uL (0.0-0.1) 02/10/23 10:34 Nucleated RBC % (auto) 0 % 02/10/23 10:34 Nucleated RBCs # 0.0 /100WBC 02/10/23 10:34 Sodium 140 mmol/L (136-145) 02/10/23 10:34 Potassium 3.6 mmol/L (3.5-5.1) 02/10/23 10:34 Chloride 106 mmol/L (98-107) 02/10/23 10:34 Carbon Dioxide 21 mmol/L (22-29) L 02/10/23 10:34 Anion Gap 16.6 (5-19) 02/10/23 10:34 BUN 9 mg/dL (6-20) 02/10/23 10:34 Creatinine 0.6 mg/dL (0.5-0.9) 02/10/23 10:34 GFR Calculation 105.8 mL/min (90-130) 02/10/23 10:34 Glucose 99 mg/dL (65-115) 02/10/23 10:34 Calculated Osmolality 289 mOsm/kg (285-295) 02/10/23 10:34 Calcium 8.6 mg/dL (8.5-10.5) 02/10/23 10:34 Total Bilirubin 0.2 mg/dL (0.15-1.2) 02/10/23 10:34 AST 37 U/L (0-32) H 02/10/23 10:34 ALT 46 U/L (0-33) H 02/10/23 10:34 Alkaline Phosphatase 139 U/L (35-105) H 02/10/23 10:34 Total Protein 6.7 g/dL (6.6-8.7) 02/10/23 10:34 Albumin 3.9 g/dL (3.5-5.2) 02/10/23 10:34 Globulin 2.8 g/dL (1.3-4.6) 02/10/23 10:34 Salicylates < 0.3 mg/dL (3-10) L 02/10/23 10:34 Acetaminophen < 5.0 ug/mL (10-30) L 02/10/23 10:34 Discharge Plan Discharge Patient Disposition: Home Clinical Impression: Adjustment disorder with emotional disturbance Condition: Stable Prescriptions: No Action budesonide-formoterol [Symbicort] 80-4.5 mcg/actuation HFA aerosol inhaler 2 puff inhalation BID omeprazole 20 mg capsule,delayed release(DR/EC) 20 mg PO DAILY albuterol sulfate 90 mcg/actuation HFA aerosol inhaler 2 puff inhalation Q6H PRN (Reason: Shortness Of Breath) metoprolol succinate 25 mg tablet extended release 24 hr 25 mg PO DAILY gabapentin 600 mg tablet 600 mg PO TID Qty: 270 2RF hydroxyzine HCl 50 mg tablet 50 mg PO BID PRN (Reason: anxiety) Qty: 60 6RF hydrocodone-acetaminophen 10-325 mg tablet 1 - 2 tab PO Q4H PRN (Reason: Pain) Abilify 20 mg tablet 20 mg PO QAM Abilify 5 mg tablet 5 mg PO QAM melatonin 10 mg tablet extended release 10 mg PO QPM naproxen 375 mg tablet 375 mg PO DAILY PRN (Reason: Pain) acetaminophen 325 mg Tablet 650 mg PO QID PRN (Reason: Pain) cyclobenzaprine 10 mg tablet 10 mg PO QID PRN (Reason: Spasms) Discharge Orders: Discharge ED (Routine); Ordered 02/10/23 Ordered By: Raza Jiménez Referrals: Alexus Reese PA [Primary Care Provider] - Discharge Diet: Usual diet Discharge Activity: Resume usual activity Patient Instructions: Opioid Safety, Pain Management Activity Restrictions/Additional Instructions: You were seen by our psychiatrist on-call today he did not feel your immediate threat to harm or anyone else based on his statements she had made earlier in the day. He felt that you could be safely discharged. Keep your appointment with [facility] as previously scheduled. Coding Level of Care Code ED Metal Hanger for Blade Yang
[2023-02-10 10:50] LABS: Basophils # 0.1 10^3/uL (0.0-0.1); Basophils % 0.7 %; Eosinophils # 0.3 10^3/uL (0.0-0.8); Eosinophils % 3.1 %; Hematocrit 43.6 % (36-47); Lymphocytes % 36.6 %; Mean Corpuscular HGB Conc 33.9 g/dL (30-55); Mean Corpuscular Hemoglobin 34.6 pg (27-33); Mean Corpuscular Volume 101.9 fl (85-98); Mean Platelet Volume 10.6 fL (7.4-10.4); Monocytes # 0.8 10^3/uL (0.2-0.9); Monocytes % 7.2 %; Neutrophils # 5.62 10^3/uL (1.8-7.7); Neutrophils % 51.8 %; Nucleated Red Blood Cells % 0 %; Platelet Count 294 10^3/cmm (157-399); Red Blood Count 4.28 10^6/uL (3.85-5.65); Red Cell Distribution Width 12.4 % (12.1-15.1); White Blood Count 10.85 10^3/uL (3.29-11.43)
[2023-02-10 11:02] LABS: Alanine Aminotransferase 46 U/L (0-33); Albumin Level 3.9 g/dL (3.5-5.2); Alkaline Phosphatase 139 U/L (35-105); Anion Gap 16.6 (5-19); Aspartate Amino Transferase 37 U/L (0-32); Blood Urea Nitrogen 9 mg/dL (6-20); Calcium 8.6 mg/dL (8.5-10.5); Carbon Dioxide 21 mmol/L (22-29); Chloride 106 mmol/L (98-107); Creatinine Clr Calc Pharmacy 107.0823; Globulin 2.8 g/dL (1.3-4.6); Glomerular Filtration Rate 105.8 mL/min (90-130); Glucose 99 mg/dL (65-115); Osmolality Calculated 289 mOsm/kg (285-295); Potassium 3.6 mmol/L (3.5-5.1); Sodium 140 mmol/L (136-145); Total Bilirubin 0.2 mg/dL (0.15-1.2); Total Protein 6.7 g/dL (6.6-8.7)
[2023-02-10 11:15] LABS: Acetaminophen < 5.0 ug/mL (10-30); Salicylate < 0.3 mg/dL (3-10)
--- NOTE | 2023-02-10 12:07 | PC.NURSE ---
Pt is stating to nurse that she is being held against my will . I explained to pt that we are waiting for the psychiatrist to come evaluate her; if he states she is okay to go, then we can proceed from there but we cannot safely discharge her until he comes and sees her. Pt states, Okay so you guys are holding me against my will then and that is not legal. I explained to pt that I have spoke with Dr. Jiménez and let him know her concerns. Pt states she is going to leave, and I informed her, per Dr. Jiménez, that if she does attempt to leave prior to psychiatrist seeing her - that Dr. Jiménez will be forced to 96-hour hold her to keep her safe. Pt states, you guys can't get a court order to hold me here. I explained to her the 96 hour hold process. She continued to say that we are holding her against her will, and I will belgica all of you and this whole place . Nurse notified pt that Dr. Botello will be down to see her when he gets a break in seeing his other patients. She stated, Don't yell at me and have an attitude. Nurse stepped away and left patient with ROSELIA Trinidad and PSA. ROSELIA Trinidad got patient something to drink and a snack. Pt will be ordered a lunch tray.
== END 2023-02-10 13:51 | disposition home or self-care (01) ==
PROVIDERS: Emergency Provider Family Medicine; PCP Physician Assistant
DX: F43.29 Adjustment disorder with other symptoms (principal); F17.210 Nicotine dependence, cigarettes, uncomplicated
CPT/HCPCS: 36415; 80053; 80307; 85025; 99283

== ENCOUNTER 2023-07-30 07:33 | Emergency (ER) | payer OTHER, SELFPAY ==
[2022-09-11 11:23] VITALS: BP 151/101; BMI 29.1
[2023-07-30 07:57] VITALS: BP 132/83; PULSE 87; RESP 17; TEMP 36.7; O2SAT 97; BMI 28.3
--- NOTE | 2023-07-30 08:23 | ED_ITS ---
HPI - Back Pain/Injury General: Chief Complaint: Back Pain/Injury Stated Complaint: Lower Back pain Time Seen by Provider: 07/30/23 07:35 Source: patient Mode of arrival: ambulatory History of Present Illness: 48-year-old female presents to the [facility] with complaints of low back pain. 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 Has severe low back pain no difficulty with bowel or bladder no radiation of pain to lower extremities. MD elicited complaint: back pain Pertinent past history: prior back pain Onset (ago): hour(s) Timing: constant Severity: moderate Similar Symptoms Previously: Yes Quality: spasming Location: lumbar spine Radiation: none Exacerbating factors: none Relieving factors: none Context: while lifting Associated symptoms: Deny abdominal pain, arthralgias, chills, change in bowel habits, difficulty walking, dysuria, fatigue, fecal incontinence, fever(s), hematuria, myalgias, nausea, numbness, syncope, tingling/numbness/burning, urinary frequency, urinary urgency, vomiting or weakness Work related injury: Yes Review of Systems Const: Denies: fever(s), chills or fatigue Card: Denies: syncope Resp: Denies: dyspnea GI: Denies: abdominal pain, nausea, vomiting, fecal incontinence or change in bowel habits : Denies: dysuria, urinary urgency or hematuria Musc: Reports: back pain; Denies: neck pain Neuro: Denies: difficulty walking PFS ED PFSH: Medical History Bipolar disorder, current episode mixed, moderate Chronic post-traumatic stress disorder Generalized anxiety disorder Nicotine dependence, cigarettes, uncomplicated No pertinent family history Psychiatric care Family History Mother CAD (coronary artery disease) Hypertension Back pain Father Cancer prostate Sister Cancer cervical Social History Smoking and tobacco/nicotine status: current every day tobacco/nicotine user cigarettes Years cigarettes smoked: 30 Quit status (tobacco/nicotine): considering quitting Second hand smoke exposure: No Alcohol intake: never Substance/Drug Use: never Adopted: No Caregiver/support person: No Lives independently: No Household members: other Details: mother Housing: House Marital status: Number of children: 2 Number of grandchildren: 0 Highest education level completed: GED or Equivalent service: No Current occupational status: employed 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 Current occupational exposures/hazards: Yes Pets and animals: Yes Pets & animals: cat(s) and dog(s) Leisure activites: other Leisure activities details: watch tv Sexually active: No Do you think of yourself as: Straight/Heterosexual Current gender identity: Female Batsheva/Episcopal: Hinduism Special batsheva needs: No Agree to transfusion: Yes Female Reproductive History: Spontaneous abortions: No Physical Exam Const: COMMON NORMALS: no acute distress GENERAL APPEARANCE: cooperative and comfortable ORIENTATION/CONSCIOUSNESS: Yes awake, Yes oriented to person, Yes oriented to place and Yes oriented to time HENMT: COMMON NORMALS: normocephalic, atraumatic and hearing grossly normal bilaterally HEAD & SCALP: normocephalic and atraumatic Resp: COMMON NORMALS: normal respiratory effort, No retractions, No use of accessory muscles and clear to auscultation bilaterally AUSCULTATION: clear to auscultation bilaterally Cardio: COMMON NORMALS: regular rate, regular rhythm and No murmurs present (Cardio) RATE: regular rate RHYTHM: regular rhythm GI: COMMON NORMALS: Soft to palpation and No hepatosplenomegaly present AUSCULTATION: Yes normoactive bowel sounds PALPATION: Yes Soft to palpation, No Tenderness to palpation present (GI), No Guarding due to palpation present (GI) and Yes No hepatosplenomegaly present Extremity: COMMON NORMALS: normal to inspection, capillary refill normal, no clubbing, cyanosis or edema, no calf tenderness and no pedal edema Neuro: SENSORIUM/ORIENTATION: Yes oriented to person, Yes oriented to place and Yes oriented to time Skin: COMMON NORMALS: no rashes or lesions noted GENERAL SKIN EXAM: no rashes or lesions noted Course Vital Signs: Vital signs: Vital Signs Temperature 98.1 F 07/30/23 07:57 Pulse Rate 87 07/30/23 07:57 Respiratory Rate 17 07/30/23 07:57 Blood Pressure 132/83 07/30/23 07:57 Pulse Oximetry 97 07/30/23 07:57 Oxygen Delivery Me thod Room Air 07/30/23 07:57 MDM - Back Pain/Injury Medical Decision Making Musculoskeletal low back pain no red flag symptoms at this time. Discharge home with steroid taper and muscle relaxers and NSAIDs follow-up with primary care Medical Records I reviewed the patient's medical records. Labs I reviewed the patient's lab results. No radiology studies performed this visit Discharge Plan Discharge Patient Disposition: Home Clinical Impression: Strain of lumbar region Condition: Stable Prescriptions: New prednisone 20 mg tablet 20 mg PO TID Qty: 15 0RF Rx Instructions: 1 p.o. 3 times daily x3 days, 1 p.o. twice daily x2 days, 1 p.o. daily x2 days diclofenac sodium 75 mg tablet,delayed release (DR/EC) 75 mg PO Q12H PRN (Reason: pain) Qty: 20 0RF Held naproxen 375 mg tablet 375 mg PO DAILY PRN (Reason: Pain) Hold Instructions: Resume on 08/09/23. No Action budesonide-formoterol [Symbicort] 80-4.5 mcg/actuation HFA aerosol inhaler 2 puff inhalation BID omeprazole 20 mg capsule,delayed release(DR/EC) 20 mg PO DAILY albuterol sulfate 90 mcg/actuation HFA aerosol inhaler 2 puff inhalation Q6H PRN (Reason: Shortness Of Breath) metoprolol succinate 25 mg tablet extended release 24 hr 25 mg PO DAILY hydroxyzine HCl 50 mg tablet 50 mg PO BID PRN (Reason: anxiety) Qty: 60 6RF gabapentin 600 mg tablet 600 mg PO TID Qty: 90 3RF quetiapine [Seroquel] 50 mg tablet 50 mg PO BEDTIME PRN (Reason: sleep) Qty: 30 3RF quetiapine [Seroquel XR] 150 mg tablet extended release 24 hr 150 mg PO .7 pm Qty: 30 3RF hydrocodone-acetaminophen 10-325 mg tablet 1 - 2 tab PO Q4H PRN (Reason: Pain) baclofen 10 mg tablet 10 mg PO Q8H PRN (Reason: Spasms) varenicline 1 mg tablet 1 mg PO BID acetaminophen 325 mg Tablet 650 mg PO QID PRN (Reason: Pain) Discharge Orders: Discharge ED (Routine); Ordered 07/30/23 Ordered By: Raza Jimnéez Referrals: Alexus Reese PA [Primary Care Provider] - Discharge Diet: Usual diet Discharge Activity: Resume usual activity Patient Instructions: Low Back Strain (ED), Opioid Safety, Pain Management Activity Restrictions/Additional Instructions: Thank you for choosing [facility] for your healthcare needs today. Please realize this is an emergency room and that we are providing you with a medical screening exam and this may not be complete and all inclusive of all the testing and or work up that you may need to determine your ailment or severity of your illness. It is very important that you follow up as instructed or that you return to the Emergency Department should you have concerns or if your condition changes or worsens in any way. Coding Level of Care Code ED Therapist Occupational for Blade Yang
[2023-07-30] MEDS: dexamethasone 10 mg/mL INJ IM (09:00)
[2023-07-30] MEDS: ketorolac 30 mg/mL INJ IM (09:00)
[2023-07-30] MEDS: HYDROcodone-acetaminophen 5-325 mg Tablet 1 TAB PO (09:00)
== END 2023-07-30 09:32 | disposition home or self-care (01) ==
PROVIDERS: Emergency Provider Family Medicine; PCP Physician Assistant
DX: S39.012A Strain of muscle, fascia and tendon of lower back, initial encounter (principal); F17.210 Nicotine dependence, cigarettes, uncomplicated; X50.0XXA Overexertion from strenuous movement or load, initial encounter; Y93.F2 Activity, caregiving, lifting; Y92.129 Unspecified place in nursing home as the place of occurrence of the external cause; Y99.0 Civilian activity done for income or pay
CPT/HCPCS: 96372; 99284; J1100; J1885

== ENCOUNTER 2023-08-13 07:37 | Outpatient (CLI) | payer MEDICAID, SELFPAY ==
[2022-09-11 11:23] VITALS: BP 151/101; BMI 29.1
--- NOTE | 2023-08-13 07:41 | MM_ITS ---
WS: [id number] BILATERAL SCREENING DIGITAL TOMOSYNTHESIS MAMMOGRAM WITH CAD HISTORY: SCREENING COMPARISON: 01/08/2022, 12/19/2021, 12/06/2019 Bilateral CC and MLO views with tomosynthesis and synthetic mammography submitted. Computer aided det ection analyzed. Breast composition: There are scattered areas of fibroglandular density. No suspicious masses, microc alcifications or architectural distortion. Stable asymmetries within each breast. IMPRESSION: MM/[place] [id number] BI-RADS: 2-Benign FOLLOW UP: 1 Year Follow-up
== END 2023-08-13 07:38 | disposition home or self-care (01) ==
LOC: RAD 07:37
PROVIDERS: PCP Physician Assistant; Visit Provider Family Medicine
DX: Z12.31 Encounter for screening mammogram for malignant neoplasm of breast (principal); R92.323 Mammographic fibroglandular density, bilateral breasts
CPT/HCPCS: 77063; 77067

== ENCOUNTER 2024-03-06 07:03 | Outpatient (CLI) | payer MEDICAID, SELFPAY ==
[2022-09-11 11:23] VITALS: BP 151/101; BMI 29.1
--- NOTE | 2024-03-06 07:16 | MR_ITS ---
WS: [id number] MRI CERVICAL SPINE NONCONTRAST TECHNIQUE: Sagittal T1, T2 and STIR imaging. Axial T2, gradient, and fiesta imaging. CLINICAL INFORMATION: LUMBAR DDD COMPARISON: MRI cervical 2020. FINDINGS: Some images degraded by motion. Straightening of the normal cervical lordosis. Disc bulging worse at C5-C6 and C6-C7 similar to previ ous. Small amount of edema in the LEFT C5-6 articulating facets compatible with synovitis. Advanced L EFT facet arthropathy at this level. C2-C3: Mild facet arthropathy. Spinal canal and foramina are patent. C3-C4: Mild disc bulge with osteophytic ridging. Mild facet arthropathy. Spinal canal and foramen are patent. C4-C5: Mild disc osteophyte complex with endplate ridging. Mild facet arthropathy. Mild LEFT and no s ignificant RIGHT foraminal narrowing. C5-C6: Disc osteophyte complex with slight impingement on the cervical cord. Mild central canal steno sis. This is similar to previous. Severe RIGHT and mild LEFT bony foraminal narrowing. Moderate LEFT facet arthropathy. C6-C7: Shallow central disc osteophyte protrusion slightly improved compared to previous. Mild centra l canal stenosis with slight indentation of the cervical cord. Moderate RIGHT greater than LEFT whitney inal narrowing. Mild facet arthropathy with uncovertebral joint hypertrophy. C7-T1: Normal. Visualized brain stem structures: Normal. Prevertebral soft tissues: Normal. Tiny LEFT thyroid cyst. Small RIGHT thyroid nodule. MR/MR cervical spin wo con* [id number] IMPRESSION: 1. Mild central canal stenosis C5-C6 and C6-C7 with slight indentation on the cervical cord. This is similar to previous. Disc bulging at C6-7 appears slight ly improved. 2. Severe RIGHT C5-C6 and moderate RIGHT greater than LEFT C6-7 bony foraminal narrowing. 3. LEFT facet synovitis C5-C6 with advanced LEFT facet arthropathy.
--- NOTE | 2024-03-06 07:16 | MR_ITS ---
WS: [id number] MRI LUMBAR SPINE NONCONTRAST TECHNIQUE: Sagittal T1, T2 and STIR imaging. Axial T1 and T2 imaging. CLINICAL INFORMATION: CERVICAL DDD COMPARISON: MRI 05/04/2021 FINDINGS: Mild lumbar curve. No acute compression. No high-grade central canal stenosis. Mild disc bulging wors e at L3-L4 and L4-L5. 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 Shallow disc protrusions in the cervical spine at C5-C6 and C6-C7 with mild central canal stenosis. L1-L2: Normal. L2-L3: Minimal annular bulging. Mild arthropathy. Spinal canal and foramina are patent. L3-L4: Mild annular bulging. Slight effacement of the ventral thecal sac. Mild narrowing of the theca l sac. Mild LEFT and no significant RIGHT foraminal narrowing. Mild to moderate facet arthropathy. L4-L5: Mild annular bulging. Moderate narrowing of the thecal sac similar to previous. Moderate facet arthropathy. Small facet effusions. Mild RIGHT greater than LEFT foraminal narrowing. L5-S1: Mild annular bulging. Tapering of the thecal sac. Moderate facet arthropathy. Foramen are desir nt. Visualized pelvic bony structures: Normal. Paravertebral soft tissues: Normal. MR/MR lumbar spine wo con* [id number] IMPRESSION: 1. Mild lumbar curve. No acute compression. 2. Stable congenital narrowing of the thecal sac previously described. 3. Mild narrowing thecal sac L3-L4 is stable. 4. Moderate narrowing thecal sac L4-5 is stable. 5. Moderate RIGHT foraminal narrowing L4-5 appears slightly progressed. 6. Stable mild LEFT L3-4 foraminal narrowing. 7. Moderate facet arthropathy L3-L5.
== END 2024-03-06 07:04 | disposition home or self-care (01) ==
PROVIDERS: PCP Physician Assistant; Visit Provider General Practice
DX: M47.896 Other spondylosis, lumbar region (principal); Q76.49 Other congenital malformations of spine, not associated with scoliosis; M99.63 Osseous and subluxation stenosis of intervertebral foramina of lumbar region; M50.322 Other cervical disc degeneration at C5-C6 level; M50.323 Other cervical disc degeneration at C6-C7 level; M25.78 Osteophyte, vertebrae; M50.122 Cervical disc disorder at C5-C6 level with radiculopathy; M48.061 Spinal stenosis, lumbar region without neurogenic claudication
CPT/HCPCS: 72141; 72148

== ENCOUNTER 2024-04-04 08:00 | Emergency (ER) | payer MEDICAID, SELFPAY ==
[2022-09-11 11:23] VITALS: BP 151/101; BMI 29.1
[2024-04-04] VITALS (7 sets, daily range): BP systolic 104–152; BP diastolic 71–98; PULSE 84–96; RESP 14; TEMP 36.8; O2SAT 95–100; BMI 30.1
--- NOTE | 2024-04-04 08:16 | CT_ITS ---
WS: [id number] CT ABDOMEN AND PELVIS WITH CONTRAST HISTORY: abd pain TECHNIQUE: Imaging performed of the abdomen and pelvis with IV contrast. Single phase imaging of the abdomen. Coronal and sagittal reformats are submitted. All CT scans at [facility] use at [address] one of these dose optimization techniques: automated exposure control; mA and/or kV adjustment per patient size (includes targeted exams where dose is matched to clinical indication); or iterative re construction. IV CONTRAST: Omnipaque 350; 100 mL IV. Oral contrast: No DLP: 662.03 mGy.cm COMPARISON: 09/19/2017 Lower thorax: Lung bases are clear. Heart is normal size. No hiatal hernia. Liver/biliary system: Moderate hepatomegaly and hepatic steatosis. Normal portal vein. Gallbladder: Normal. No gallstones or wall thickening. No pericholecystic fluid. Pancreas: Normal size pancreas and pancreatic duct. No adjacent inflammation. Spleen: Normal size spleen. No mass or infarct. Adrenal glands: Normal. Right kidney: Normal. Left kidney: Normal. Aorta: Normal. Lymphadenopathy: There are a few small central mesenteric lymph nodes which were also present on the prior exam. Free fluid: None. GI tract: Nondistended stomach. No small bowel obstruction. Normal appendix. No colitis or obstructio n. Mild diffuse diverticulosis. No acute diverticulitis. Abdominal wall: Unremarkable abdominal wall. No hernia. Pelvis: No free fluid or adenopathy within the pelvis. Enlarged slightly lobular uterus. Slightly hyp oechoic mass measuring 3.8 x 3.0 cm in the anterior myometrium is likely a fibroid. Bones: Unremarkable. CT/CT abdomen pelvis w con* [id number] IMPRESSION: 1. No GI tract obstruction or colitis. 2. Mild scattered diverticulosis without acute diverticulitis. 3. Moderate thyromegaly and hepatic steatosis. 4. Mass in the central uterus measures 3.8 x 3.0 cm. Suspect this is probably a fibroid. Recommend transvaginal pelvic ultrasound evaluation for clarificatio n. This can be performed on an outpatient basis.
[2024-04-04 08:40] LABS: Basophils # 0.1 10^3/uL (0.0-0.1); Basophils % 0.7 %; Eosinophils # 0.2 10^3/uL (0.0-0.8); Eosinophils % 1.6 %; Hematocrit 44.5 % (36-47); Lymphocytes # 3.2 10^3/uL (0.8-4.8); Lymphocytes % 27.9 %; Mean Corpuscular HGB Conc 34.2 g/dL (30-55); Mean Corpuscular Hemoglobin 32.7 pg (27-33); Mean Corpuscular Volume 95.7 fl (85-98); Mean Platelet Volume 10.2 fL (7.4-10.4); Monocytes # 0.8 10^3/uL (0.2-0.9); Neutrophils # 7.06 10^3/uL (1.8-7.7); Neutrophils % 62.4 %; Nucleated Red Blood Cells % 0 %; Platelet Count 294 10^3/cmm (157-399); Red Blood Count 4.65 10^6/uL (3.85-5.65); Red Cell Distribution Width 13.1 % (12.1-15.1); White Blood Count 11.31 10^3/uL (3.29-11.43)
[2024-04-04 08:58] LABS: Alanine Aminotransferase 36 U/L (0-33); Albumin Level 4.3 g/dL (3.5-5.2); Alkaline Phosphatase 143 U/L (35-105); Anion Gap 16.4 (5-19); Aspartate Amino Transferase 32 U/L (0-32); Blood Urea Nitrogen 15 mg/dL (6-20); Calcium 8.6 mg/dL (8.5-10.5); Carbon Dioxide 20 mmol/L (22-29); Chloride 107 mmol/L (98-107); Creatinine Clr Calc Pharmacy 93.4884; Globulin 2.2 g/dL (1.3-4.6); Glomerular Filtration Rate 88.2 mL/min (90-130); Glucose 156 mg/dL (65-115); Lipase 33 U/L (13-60); Osmolality Calculated 294 mOsm/kg (285-295); Potassium 3.4 mmol/L (3.5-5.1); Sodium 140 mmol/L (136-145); Total Bilirubin 0.4 mg/dL (0.15-1.2); Total Protein 6.5 g/dL (6.6-8.7)
[2024-04-04] MEDS: iohexol 350 mg/mL 500 mL Btl (per mL) IV (09:00)
--- NOTE | 2024-04-04 09:04 | W.ED.ABDPA2 ---
HPI - Abdominal Pain General: Chief Complaint: Abdominal Pain Stated Complaint: abd bloating and pain Time Seen by Provider: 04/04/24 08:15 History of Present Illness: 49-year-old female presents emergency room complaining abdominal pain for last 5 days no fever sweats chills no hematochezia or melena. She has had diarrhea intermittently. In small amounts she had seen her primary care doctor yesterday. She was having some constipation that they noted on imaging. She started some ankle paresis. She has tried several [id number] laxatives prior to that send seeing her doctor she has tried mag citrate with no relief symptoms she is having increasing pain. No dysuria urgency or frequency no hematuria. No history of kidney stones she has previously had 2 C-sections no other abdominal surgeries. Associated Symptoms: Denies chills, dysuria, fever(s), nausea and vomiting Related Data Home Medications Medication Instructions Recorded Confirmed budesonide-formoterol HFA 80 2 puff inhalation BID 10/01/20 04/04/24 mcg-4.5 mcg/actuation aerosol inhaler (Symbicort) omeprazole 20 mg capsule,delayed 20 mg PO DAILY 03/05/21 04/04/24 release metoprolol succinate 25 mg 25 mg PO DAILY 03/23/22 04/04/24 tablet,extended release 24 hr naproxen 375 mg tablet 375 mg PO DAILY PRN Pain 07/27/22 04/04/24 hydrocodone 10 mg-acetaminophen 1 - 2 tab PO Q4H PRN Pain 02/10/23 04/04/24 325 mg tablet baclofen 10 mg tablet 10 mg PO Q8H PRN Spasms 07/30/23 04/04/24 varenicline 1 mg tablet 1 mg PO BID 07/30/23 04/04/24 Previous Rx's Medication Instructions Recorded hydroxyzine HCl 50 mg tablet 50 mg PO BID PRN anxiety #60 tabs 09/24/23 quetiapine 300 mg tablet,extended 300 mg PO .7 pm #30 tabs 09/24/23 release 24 hr (Seroquel XR) gabapentin 600 mg tablet 600 mg PO TID #90 tabs 11/12/23 quetiapine 50 mg tablet (Seroquel) 50 mg PO BEDTIME PRN sleep #60 tabs 11/12/23 diclofenac sodium 75 mg 75 mg PO Q12H PRN pain #20 tabs 04/04/24 tablet,delayed release hydrocodone 5 mg-acetaminophen 325 1 tab PO Q6H PRN pain #15 tabs 04/04/24 mg tablet Allergies Allergy/AdvReac Type Severity Reaction Status Date / Time No Known Allergies Allergy Verified 04/04/24 08:13 Review of Systems Const: Denies: fever(s) or chills Card: Denies: chest pain Resp: Denies: dyspnea GI: Reports: abdominal pain; Denies: nausea or vomiting : Denies: dysuria, urinary frequency or urinary urgency Musc: Denies: neck pain or back pain Skin/Breast: Denies: rash PFSH ED PFSH: Medical History (Updated 04/04/24 @ 09:36 by Raza Jiménez DO) Asthma Hypertension No pertinent family history Bipolar disorder, current episode mixed, moderate Psychiatric care Generalized anxiety disorder Chronic post-traumatic stress disorder Surgical History (Updated 04/04/24 @ 09:15 by Raza Jiménez DO) H/O tubal ligation 1999 Previous section 2 times Family History Mother CAD (coronary artery disease) Hypertension Back pain Father Cancer prostate Sister Cancer cervical Social History Smoking and tobacco/nicotine status: current every day tobacco/nicotine user cigarettes Years cigarettes smoked: 30 Quit status (tobacco/nicotine): considering quitting Second hand smoke exposure: No Alcohol intake: never Substance/Drug Use: never Adopted: No Caregiver/support person: No Lives independently: No Household members: other Details: mother Housing: House Marital status: Number of children: 2 Number of grandchildren: 0 Highest education level completed: GED or Equivalent service: No Current occupational status: employed 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 Current occupational exposures/hazards: Yes Pets and animals: Yes Pets & animals: cat(s) and dog(s) Leisure activites: other Leisure activities details: watch tv Sexually active: No Do you think of yourself as: Straight/Heterosexual Current gender identity: Female Batsheva/Episcopalian: Sikhism Special batsheva needs: No Agree to transfusion: Yes Female Reproductive History: Spontaneous abortions: No Physical Exam Const: GENERAL APPEARANCE: cooperative ORIENTATION/CONSCIOUSNESS: Yes awake, Yes oriented to person, Yes oriented to place and Yes oriented to time HENMT: COMMON NORMALS: normocephalic, atraumatic and hearing grossly normal bilaterally HEAD & SCALP: normocephalic and atraumatic Resp: COMMON NORMALS: normal respiratory effort, No retractions, No use of accessory muscles and clear to auscultation bilaterally AUSCULTATION: clear to auscultation bilaterally Cardio: COMMON NORMALS: regular rate, regular rhythm and No murmurs present (Cardio) RATE: regular rate RHYTHM: regular rhythm GI: COMMON NORMALS: No hepatosplenomegaly present INSPECTION: No abdominal distension AUSCULTATION: Yes normoactive bowel sounds PALPATION: Yes Tenderness to palpation present (GI) (Generalized tenderness no specific area of tenderness.), No Guarding due to palpation present (GI) and Yes No hepatosplenomegaly present Extremity: COMMON NORMALS: normal to inspection, capillary refill normal, no clubbing, cyanosis or edema, no calf tenderness and no pedal edema Neuro: SENSORIUM/ORIENTATION: Yes oriented to person, Yes oriented to place and Yes oriented to time Skin: COMMON NORMALS: no rashes or lesions noted GENERAL SKIN EXAM: no rashes or lesions noted Course Vital Signs: Vital signs: Vital Signs Temperature 98.3 F 04/04/24 08:08 Pulse Rate 85 04/04/24 10:40 Respiratory Rate 14 04/04/24 08:08 Blood Pressure 152/98 04/04/24 10:40 Pulse Oximetry 95 04/04/24 10:40 Oxygen Delivery Me thod Room Air 04/04/24 10:37 MDM - Abdominal Pain Medical Decision Making Abdominal bloating and pain. She has uterine fibroid was not a significant amount of stool in the colon on CT. Will start her on pain medications nausea medicines anti-inflammatories set her up to see gynecology. Return if she has further problems. Other labs were normal including liver functions and electrolytes kidney function no leukocytosis no signs of anemia CT did not show any signs of colitis diverticuli nephrolithiasis acute appendicitis or other acute intra-abdominal pathology Medical Records I reviewed the patient's medical records. Lab Data I reviewed the patient's lab results. 04/04/24 08:31 04/04/24 08:31 Labs/Radiology: Radiology Impressions Abdomen/Pelvis CT 04/04/24 08:16 IMPRESSION: 1. No GI tract obstruction or colitis. 2. Mild scattered diverticulosis without acute diverticulitis. 3. Moderate thyromegaly and hepatic steatosis. 4. Mass in the central uterus measures 3.8 x 3.0 cm. Suspect this is probably a fibroid. Recommend transvaginal pelvic ultrasound evaluation for clarification. This can be performed on an outpatient basis. Laboratory Results WBC 11.31 10^3/uL (3.29-11.43) 04/04/24 08:31 RBC 4.65 10^6/uL (3.85-5.65) 04/04/24 08:31 Hgb 15.20 g/dL (11.27-16.99) 04/04/24 08:31 Hct 44.5 % (36-47) 04/04/24 08:31 MCV 95.7 fl (85-98) 04/04/24 08:31 MCH 32.7 pg (27-33) 04/04/24 08:31 MCHC 34.2 g/dL (30-55) 04/04/24 08:31 RDW 13.1 % (12.1-15.1) 04/04/24 08:31 Plt Count 294 10^3/cmm (157-399) 04/04/24 08:31 MPV 10.2 fL (7.4-10.4) 04/04/24 08:31 Neut % (Auto) 62.4 % 04/04/24 08:31 Lymph % (Auto) 27.9 % 04/04/24 08:31 [place] % (Auto) 7.0 % 04/04/24 08:31 Eos % (Auto) 1.6 % 04/04/24 08:31 Baso % (Auto) 0.7 % 04/04/24 08:31 Neut # (Auto) 7.06 10^3/uL (1.8-7.7) 04/04/24 08:31 Lymph # (Auto) 3.2 10^3/uL (0.8-4.8) 04/04/24 08:31 [place] # (Auto) 0.8 10^3/uL (0.2-0.9) 04/04/24 08:31 Eos # (Auto) 0.2 10^3/uL (0.0-0.8) 04/04/24 08:31 Baso # (Auto) 0.1 10^3/uL (0.0-0.1) 04/04/24 08:31 Nucleated RBC % (auto) 0 % 04/04/24 08:31 Nucleated RBCs # 0.0 /100WBC 04/04/24 08:31 Sodium 140 mmol/L (136-145) 04/04/24 08:31 Potassium 3.4 mmol/L (3.5-5.1) L 04/04/24 08:31 Chloride 107 mmol/L (98-107) 04/04/24 08:31 Carbon Dioxide 20 mmol/L (22-29) L 04/04/24 08:31 Anion Gap 16.4 (5-19) 04/04/24 08:31 BUN 15 mg/dL (6-20) 04/04/24 08:31 Creatinine 0.7 mg/dL (0.5-0.9) 04/04/24 08:31 GFR Calculation 88.2 mL/min (90-130) L 04/04/24 08:31 Glucose 156 mg/dL (65-115) H 04/04/24 08:31 Calculated Osmolality 294 mOsm/kg (285-295) 04/04/24 08:31 Calcium 8.6 mg/dL (8.5-10.5) 04/04/24 08:31 Total Bilirubin 0.4 mg/dL (0.15-1.2) 04/04/24 08:31 AST 32 U/L (0-32) 04/04/24 08:31 ALT 36 U/L (0-33) H 04/04/24 08:31 Alkaline Phosphatase 143 U/L (35-105) H 04/04/24 08:31 Total Protein 6.5 g/dL (6.6-8.7) L 04/04/24 08:31 Albumin 4.3 g/dL (3.5-5.2) 04/04/24 08:31 Globulin 2.2 g/dL (1.3-4.6) 04/04/24 08:31 Lipase 33 U/L (13-60) 04/04/24 08:31 Urine Color Yellow (Yellow) 04/04/24 09:45 Urine Appearance Clear (CLEAR) 04/04/24 09:45 Urine pH 5.5 (5-7) 04/04/24 09:45 Ur Specific [place] 1.084 (1.005-1.030) H 04/04/24 09:45 Urine Protein Negative (Negative) 04/04/24 09:45 Urine Glucose (UA) Negative (Normal) 04/04/24 09:45 Urine Ketones Negative (Negative) 04/04/24 09:45 Urine Blood Negative (Negative) 04/04/24 09:45 Urine Nitrate Negative (Negative) 04/04/24 09:45 Urine Bilirubin Negative (Negative) 04/04/24 09:45 Urine Urobilinogen 0.2 mg/dL (Negative) 04/04/24 09:45 Ur Leukocyte Esterase Negative (Negative) 04/04/24 09:45 Urine RBC 0-2 /hpf (0-2) 04/04/24 09:45 Urine WBC 0-5 /hpf (0-5) 04/04/24 09:45 Ur Squamous Epith Cells 6-10 /hpf (0-5) 04/04/24 09:45 Amorphous Sediment Not Reportable 04/04/24 09:45 Urine Bacteria 1+ /hpf (NONE) H 04/04/24 09:45 Hyaline Casts 0-4 /lpf H 04/04/24 09:45 All radiology interpretation(s) finalized by discharge Discharge Plan Discharge Patient Disposition: Home Clinical Impression: Uterine fibroid Condition: Stable Prescriptions: New hydrocodone-acetaminophen 5-325 mg tablet 1 tab PO Q6H PRN (Reason: pain) Qty: 15 0RF diclofenac sodium 75 mg tablet,delayed release (DR/EC) 75 mg PO Q12H PRN (Reason: pain) Qty: 20 0RF No Action budesonide-formoterol [Symbicort] 80-4.5 mcg/actuation HFA aerosol inhaler 2 puff inhalation BID omeprazole 20 mg capsule,delayed release(DR/EC) 20 mg PO DAILY metoprolol succinate 25 mg tablet extended release 24 hr 25 mg PO DAILY hydroxyzine HCl 50 mg tablet 50 mg PO BID PRN (Reason: anxiety) Qty: 60 6RF quetiapine [Seroquel XR] 300 mg tablet extended release 24 hr 300 mg PO .7 pm Qty: 30 6RF gabapentin 600 mg tablet 600 mg PO TID Qty: 90 6RF Rx Instructions: Take one tablet three times per day quetiapine [Seroquel] 50 mg tablet 50 mg PO BEDTIME PRN (Reason: sleep) Qty: 60 6RF Rx Instructions: Take 1 tablet at bedtime as needed for sleep, may repeat dose in 1 hr if not asleep hydrocodone-acetaminophen 10-325 mg tablet 1 - 2 tab PO Q4H PRN (Reason: Pain) baclofen 10 mg tablet 10 mg PO Q8H PRN (Reason: Spasms) varenicline 1 mg tablet 1 mg PO BID naproxen 375 mg tablet 375 mg PO DAILY PRN (Reason: Pain) Hold Instructions: Resume on 08/09/23. Discharge Orders: Discharge ED (Routine); Ordered 04/04/24 Ordered By: Raza Jiménez Referrals: Alexus Reese PA [Primary Care Provider] - Discharge Diet: Usual diet Discharge Activity: Increase activity as tolerated Patient Instructions: Opioid Safety, Pain Management Activity Restrictions/Additional Instructions: Thank you for choosing [facility] for your healthcare needs today. It is very important that you follow up as instructed or that you return to the Emergency Department should you have concerns or if your condition changes or worsens in any way. You were seen today with complaints of abdominal pain. CT did not show significant constipation however there is a large uterine fibroid. This can be further evaluated by ultrasound was to be scheduled by case management on an outpatient basis. You are given a prescription for diclofenac to use as needed hydrocodone use for severe pain. systems engineering manager will also make arrangements for you to follow-up with gynecology. Coding Level of Care Code ED Title Specialist for Blade Yang
[2024-04-04 10:01] LABS: Bilirubin Urine Negative (Negative); Blood Urine Negative (Negative); Glucose Urine UA Negative (Normal); Ketones Urine Negative (Negative); Leukocyte Esterase Urine Negative (Negative); Nitrate Urine Negative (Negative); Protein Urine Negative (Negative); Urine Appearance Clear (CLEAR); Urine Color Yellow (Yellow); Urobilinogen Urine 0.2 mg/dL (Negative); pH Urine 5.5 (5-7)
[2024-04-04 10:06] LABS: Add Urine Microscopic? YES; Bacteria Urine 1+ /hpf; Hyaline Casts Urine 0-4 /lpf; RBC Urine 0-2 /hpf (0-2); WBC Urine 0-5 /hpf (0-5)
[2024-04-04 10:12] LABS: Add Urine Culture? No; Specific Gravity, Urine 1.084 (1.005-1.030)
--- NOTE | 2024-04-05 06:20 | DCPLANNER ---
Message sent to [facility] for [facility] up-
--- NOTE | 2024-04-06 07:31 | DCPLANNER ---
faxed outpatient order to scheduling for er f/u
== END 2024-04-04 10:40 | disposition home or self-care (01) ==
PROVIDERS: Emergency Provider Family Medicine; PCP Physician Assistant
DX: D25.9 Leiomyoma of uterus, unspecified (principal); I10 Essential (primary) hypertension; F17.210 Nicotine dependence, cigarettes, uncomplicated
CPT/HCPCS: 36415; 74177; 80053; 81001; 83690; 85025; 99285

== ENCOUNTER → 2024-06-07 08:53 | Outpatient (BNVA) | payer OTHER, SELFPAY ==
[2022-09-11 11:23] VITALS: BP 151/101; BMI 29.1
== END ==
PROVIDERS: PCP Physician Assistant; Visit Provider Nurse Practitioner Psychiatric/Mental Health
DX: Z79.899 Other long term (current) drug therapy (principal); F10.20 Alcohol dependence, uncomplicated; F31.62 Bipolar disorder, current episode mixed, moderate; F43.12 Post-traumatic stress disorder, chronic; F41.1 Generalized anxiety disorder; F17.290 Nicotine dependence, other tobacco product, uncomplicated
CPT/HCPCS: 80053; 80061; 82306; 82607; 83036; 85025

== ENCOUNTER 2025-03-22 07:52 | Outpatient (CLI) | payer MEDICAID, SELFPAY ==
[2022-09-11 11:23] VITALS: BP 151/101; BMI 29.1
--- NOTE | 2025-03-22 08:00 | MM_ITS ---
WS: [id number] BILATERAL 3D TOMOSYNTHESIS DIGITAL SCREENING MAMMOGRAPHY WITH CAD CLINICAL INFORMATION: SCREENING HISTORY: Screening mammogram. No current complaints. COMPARISON: 2023 TECHNIQUE: Bilateral CC and MLO views. FINDINGS: Scattered fibroglandular densities bilaterally. No suspicious focal mass, asymmetry, calcifications, or architectural distortion. No evidence of malignancy. MM/MM scr BI tomosynthesis [id number] IMPRESSION: DENSITY: There are scattered areas of fibroglandular density. BI-RADS: 1 - Negative. FOLLOW UP: 1 Year Follow-up Recommend return to annual screening mammography.
== END 2025-03-22 07:53 | disposition home or self-care (01) ==
LOC: RAD 07:53
PROVIDERS: PCP Physician Assistant; Visit Provider Physician Assistant
DX: Z12.31 Encounter for screening mammogram for malignant neoplasm of breast (principal); R92.323 Mammographic fibroglandular density, bilateral breasts
CPT/HCPCS: 77063; 77067